=== PATIENT | female | born 1935 | race Asian ===

== ENCOUNTER → 2019-05-03 | Outpatient (CLI) | payer MEDICARE, OTHER | END | disposition home or self-care (01) | LOC: RADPV 10:41 | PROVIDERS: ATTEND Internal Medicine Critical Care Medicine | DX: J44.9 Chronic obstructive pulmonary disease, unspecified (principal) ==

== ENCOUNTER → 2019-05-03 | Outpatient (CLI) | payer MEDICARE, OTHER ==
[~2019-05-03] VITALS: Ht 157.5 cm; Wt 53.5 kg
[2019-05-03 16:27] VITALS: BP 133/61
== END | disposition home or self-care (01) ==
LOC: SRCNTR 08:57
PROVIDERS: ATTEND Internal Medicine Critical Care Medicine
DX: K21.9 Gastro-esophageal reflux disease without esophagitis (principal); I10 Essential (primary) hypertension; E11.9 Type 2 diabetes mellitus without complications; R05 Cough
CPT/HCPCS: G0463